=== PATIENT | female | born 1975 ===

== ENCOUNTER → 2021-12-15 | Outpatient (CLI) | payer OTHER ==
[~2021-12-15] MED LIST: ALBU90OI INH; DOXY100 PO; HYDGUAL120 PO; SULF10OPSA OS
[2021-12-15 13:00] LABS: Bun/Creatinine Ratio 18.5 (12.0-20.0); Calcium, Blood 9.6 mg/dL (8.5-10.1); Creatinine, Blood 0.59 mg/dL (0.40-1.00); Potassium, Blood 3.5 mmol/L (3.5-5.5)
== END | disposition home or self-care (01) ==
LOC: LAB SHORT 12:42
PROVIDERS: Nurse Practitioner Family
DX: I12.9 Hypertensive chronic kidney disease with stage 1 through stage 4 chronic kidney disease, or unspecified chronic kidney disease (principal); N18.2 Chronic kidney disease, stage 2 (mild); K42.9 Umbilical hernia without obstruction or gangrene; M62.08 Separation of muscle (nontraumatic), other site; R19.00 Intra-abdominal and pelvic swelling, mass and lump, unspecified site
CPT/HCPCS: 80048

== ENCOUNTER → 2022-10-04 | Outpatient (CLI) | payer OTHER | END | disposition home or self-care (01) | LOC: LAB SHORT 12:04 → LAB 12:04 | DX: J02.9 Acute pharyngitis, unspecified (principal) | CPT/HCPCS: 87081 ==

== ENCOUNTER 2022-11-09 07:25 | Emergency (ER) | payer OTHER ==
[~2022-11-09] VITALS: Ht 160 cm; Wt 79.4 kg
[2022-11-09 07:34] VITALS: BP 150/107
[2022-11-09] MEDS ORDERED: LOSARTAN POTASS25 M2 PO (07:37)
[2022-11-09] MEDS ORDERED: AMOX-CLAV 875-1 EAC5 PO (07:37)
[2022-11-09] MEDS ORDERED: Flonase 0.05% N16 GM (08:00)
== END 2022-11-09 08:21 | disposition home or self-care (01) ==
LOC: ER 07:25
DX: R04.0 Epistaxis (principal); I10 Essential (primary) hypertension; Z79.899 Other long term (current) drug therapy
CPT/HCPCS: 99282

== ENCOUNTER 2022-12-26 20:00 | Emergency (ER) | payer OTHER ==
[~2022-12-26] VITALS: Ht 160 cm; Wt 61.2 kg
[~2022-12-26 20:00] MED LIST changes: +AMOX-CLAV 875-1 EAC5 PO; +Flonase 0.05% N16 GM; +LOSARTAN POTASS25 M2 PO
[2022-12-26 23:31] VITALS: BP 130/97
== END 2022-12-26 23:53 | disposition home or self-care (01) ==
LOC: ER 20:00
DX: R04.0 Epistaxis (principal); Z79.899 Other long term (current) drug therapy; I10 Essential (primary) hypertension
CPT/HCPCS: 30901; 99283-25; A9270

== ENCOUNTER 2023-02-20 08:30 | Day surgery (SDC) | payer OTHER ==
[~2023-02-20] VITALS: Ht 160 cm; Wt 79.1 kg
[2023-02-20] MEDS ORDERED: GABA100 (08:42)
[2023-02-20] MEDS ORDERED: FLONASE ALLERG9.9 M2 (08:42)
[2023-02-20] MEDS ORDERED: Amlodipine Bes2.5 MG (08:47)
[2023-02-20] MEDS ORDERED: BUSPIRONE HCL7.5 M1 (08:47)
[2023-02-20 11:22] VITALS: BP 105/80
== END 2023-02-20 11:18 | disposition home or self-care (01) ==
LOC: ORSCSDS 08:30
PROVIDERS: Internal Medicine Gastroenterology
PROC: 0DB98ZX Excision of Duodenum, Via Natural or Artificial Opening Endoscopic, Diagnostic (ICD-10-PCS; principal; 2023-02-20 09:45)
PROC: 0DB48ZX Excision of Esophagogastric Junction, Via Natural or Artificial Opening Endoscopic, Diagnostic (ICD-10-PCS; principal; 2023-02-20 09:45)
PROC: 0DBH8ZX Excision of Cecum, Via Natural or Artificial Opening Endoscopic, Diagnostic (ICD-10-PCS; principal; 2023-02-20 09:45)
PROC: 0DBE8ZX Excision of Large Intestine, Via Natural or Artificial Opening Endoscopic, Diagnostic (ICD-10-PCS; principal; 2023-02-20 09:45)
DX: R10.13 Epigastric pain (principal); D50.9 Iron deficiency anemia, unspecified; R19.4 Change in bowel habit; D12.0 Benign neoplasm of cecum; K44.9 Diaphragmatic hernia without obstruction or gangrene; I10 Essential (primary) hypertension; Z87.891 Personal history of nicotine dependence; Z79.899 Other long term (current) drug therapy
CPT/HCPCS: 88305; 88312; J2704; J7120

== ENCOUNTER 2024-06-14 07:13 | Day surgery (SDC) | payer OTHER ==
[~2024-06-14] VITALS: Ht 157.5 cm; Wt 72.8 kg
[2024-06-14] VITALS (19 sets, daily range): BP systolic 128–157; BP diastolic 80–107
[~2024-06-14 07:13] MED LIST changes: +Amlodipine Bes2.5 MG; +BUSPIRONE HCL7.5 M1; +CHLO25B PO; +FLONASE ALLERG9.9 M2; +GABA100; +LOSA25 PO; +MOUNJARO2.5 MG/0.5 SQ
[2024-06-14] MEDS ORDERED: Lactated Ringer's 1,000 ML IV SCH ×2 (07:40→11:35)
[2024-06-14] MEDS ORDERED: CeFAZolin Sodium 2,000 MG in NS 100 ML IV SCH (07:40)
[2024-06-14] MEDS ORDERED: CeFAZolin Sodium 2,000 MG VIAL ONE (07:54)
[2024-06-14] MEDS ORDERED: propofoL 20 ML IV ONE (08:02)
[2024-06-14] MEDS ORDERED: FentaNYL Citrate 50 MCG/ML 2 ML Injection ONE (08:04)
[2024-06-14] MEDS ORDERED: Dexamethasone Sod Phos 10 MG/ML 1ML VIAL ONE (08:45)
[2024-06-14] MEDS ORDERED: Ondansetron HCl 2 MG / ML 2ML Vial ONE (08:45)
[2024-06-14] MEDS ORDERED: Rocuronium Bromide 10 MG/ML 5ML Injection IV ONE (08:45)
[2024-06-14] MEDS ORDERED: Ketamine HCl 100 MG / ML 5ML Vial ONE (09:21)
[2024-06-14] MEDS ORDERED: Lidocaine 2%-Epineph 1:200000 20 ML SDV ONE (09:23)
[2024-06-14] MEDS ORDERED: Bupivacaine 0.5% HCl 5 MG/ML 30MLVIAL ONE (09:23)
[2024-06-14] MEDS ORDERED: HYDROmorphone HCl/Pf 1MG SYR ONE ×2 (10:32→11:47)
[2024-06-14] MEDS ORDERED: Ondansetron HCl 2 MG / ML 2ML Vial IV PRN (11:30)
[2024-06-14] MEDS ORDERED: OxyCODONE HCL 5 MG TAB PO PRN (11:30)
[2024-06-14] MEDS ORDERED: Acetaminophen 325 MG TABLET PO PRN (11:35)
[2024-06-14] MEDS ORDERED: DiphenhydrAMINE HCL 25 MG Cap PO PRN (11:35)
[2024-06-14] MEDS ORDERED: Ibuprofen 400 MG Tab PO PRN (11:35)
[2024-06-14] MEDS ORDERED: HYDROcodone 5-APAP 325 TAB PO PRN (11:35)
[2024-06-14] MEDS ORDERED: Simethicone 80 MG Chew PO PRN (11:35)
[2024-06-14] MEDS ORDERED: FentaNYL Citrate 50 MCG/ML 2 ML Injection IV PRN (11:40)
[2024-06-14] MEDS ORDERED: FLU VACC TS2024-25(6MOS UP)/PF 45 MCG/0.5 ML SYRINGE IM SCH (11:40)
[2024-06-14] MEDS ORDERED: Ketorolac Tromethamine 30mg Vial IV SCH (12:00)
[2024-06-14] MEDS ORDERED: Ketorolac Tromethamine 30mg Vial ONE (12:11)
--- NOTE | 2024-06-14 13:32 | NUR ---
POST OP: REPORT RECEIVED FROM [employer] PROFESSOR. PT TO UNIT AT ABOUT 1230. A/O, VSS. SURGICAL SITES WNL. NO VAGINAL BLEEDING, CORNEJO DRAINING TO GRAVITY. PT ORIENTED TO ROOM AND CALL LIGHT. INSTRUCTED TO CALL IF NEEDS OOB
[2024-06-14 14:49] LABS: BASOPHILS ABSOLUTE AUTO 0.03 K/mm3 (0.00-0.23); BASOPHILS PERCENT AUTO 0 % (0-2); EOSINOPHILS PERCENT AUTO 0 % (0-6); Hematocrit 37.9 % (33.0-51.0); Hemoglobin 13.3 g/dL (11.5-16.0); IMMATURE GRAN ABSOLUTE AUTO 0.09 K/mm3 (0.00-0.10); IMMATURE GRAN PERCENT AUTO 1 % (0-1); LYMPHOCYTES ABSOLUTE AUTO 0.72 K/mm3 (0.84-5.20); LYMPHOCYTES PERCENT AUTO 4 % (21-46); MONOCYTES ABSOLUTE AUTO 0.47 K/mm3 (0.16-1.47); MONOCYTES PERCENT AUTO 3 % (4-13); Mean Corpuscular HGB 30.9 pg (26.0-34.0); Mean Corpuscular HGB Conc 35.1 g/dL (31.5-36.5); Mean Corpuscular Volume 88 fL (80-100); Mean Platelet Volume 9.1 fL (9.1-12.4); NEUTROPHILS ABSOLUTE AUTO 16.61 K/mm3 (1.96-9.15); NEUTROPHILS PERCENT AUTO 93 % (41-73); Platelet Count 334 K/mm3 (150-400); RDW Coefficient Variation 12.7 % (11.7-14.2); RDW Standard Deviation 41.1 fL (35.1-46.3); White Blood Cell Count 17.92 K/mm3 (4.00-11.30)
--- NOTE | 2024-06-14 18:08 | NUR ---
DISCHARGE: PT IS VOIDING, AMBULATING AND PAIN MANAGED. SURGICAL SITES WNL, MIN VAGINAL BLEED. IV DC'D WNL, TIP INTACT. DC PACKET PRINTED AND PT EDUCATED. PT LEFT UNIT VIA WHEELCHAIR WITH AT ABOUT 1800
== END 2024-06-14 18:00 | disposition home or self-care (01) ==
LOC: ORSCMMR 07:13 → ORD 08:45 → ORSCMMR 08:45 → SURS 12:28 → ORSCMMR 18:00
PROVIDERS: Obstetrics & Gynecology
DX: N92.1 Excessive and frequent menstruation with irregular cycle (principal); R10.2 Pelvic and perineal pain; D25.9 Leiomyoma of uterus, unspecified; N83.11 Corpus luteum cyst of right ovary; D50.0 Iron deficiency anemia secondary to blood loss (chronic); N94.6 Dysmenorrhea, unspecified; I10 Essential (primary) hypertension; Z79.899 Other long term (current) drug therapy
CPT/HCPCS: 36415; 85025; 88307; J0690; J1100; J1171; J1885; J2405; J2704; J3010; J7120